=== PATIENT | female | born 1940 | race African-American/Black ===

== ENCOUNTER 2018-01-09 09:37 | Emergency (ER) | payer MEDICARE, BC ==
[~2018-01-09] VITALS: Ht 165.1 cm; Wt 57.0 kg
[2018-01-09] MEDS ORDERED: ARAV20 PO (09:50)
[2018-01-09] MEDS ORDERED: PREDNISONE 20MG TABLET PO ONE (10:15)
[2018-01-09] MEDS ORDERED: FAMOTIDINE 20MG TABLET PO ONE (10:15)
[2018-01-09 10:36] VITALS: BP 162/78
== END 2018-01-09 11:18 | disposition home or self-care (01) ==
LOC: ER 09:37
DX: T78.40XA Allergy, unspecified, initial encounter (principal); L29.9 Pruritus, unspecified; M06.9 Rheumatoid arthritis, unspecified; I10 Essential (primary) hypertension
CPT/HCPCS: 99283; J7512